=== PATIENT | male | born 1985 | race Caucasian/White ===

== ENCOUNTER 2018-02-05 05:51 | Emergency (ER) | payer OTHER ==
[2018-02-05 06:08] VITALS: BP 126/74; PULSE 74; RESP 20; TEMP 98.3
--- NOTE | 2018-02-05 06:43 | XR ---
EXAMINATION TYPE: XR hand complete RT DATE OF EXAM: 02/05/2018 COMPARISON: NONE HISTORY: Laceration and pain TECHNIQUE: 3 views FINDINGS: I see no fracture nor dislocation. Joint spaces are fairly normal. There are no erosions. T here is no sign of radiopaque foreign body. IMPRESSION: Negative right hand exam.
[2018-02-05] MEDS ORDERED: LIDOCAINE 1% INJ 10MG/ML (20 ML MDV) SQ ONE (07:12)
--- NOTE | 2018-02-05 07:17 | ED ---
General Adult HPI - General Chief complaint: Wound/Laceration Stated complaint: Finger injury-[facility] Source: patient Mode of arrival: ambulatory Limitations: no limitations - History of Present Illness Initial comments: Dictation was produced using [employer] dictation software. please excuse any grammatical, word or spelling errors. Chief Complaint: 32-year-old male with no significant past medical history presents with finger laceration. History of Present Illness: 32-year-old male who was working at the local [employer] when his right fourth digit was pinched between a metal object. He noticed that there was bleeding and evisceration some of the subcutaneous tissues. He went to see his bosses possible to come to the emergency department for evaluation. Patient states his finger was caught between the ground and a metal object. Patient states that only his right fourth digit was involved in the incident. Denies any injury to other digits and hand. This state there is some pain to his wrist and forearm when he makes a fist. Last tetanus was a couple years ago. The ROS documented in this emergency department record has been reviewed and confirmed by me. Those systems with pertinent positive or negative responses have been documented in the HPI. All other systems are other negative and/or noncontributory. - Related Data Home Medications Medication Instructions Recorded Confirmed No Known Home Medications 02/05/18 02/05/18 Allergies Allergy/AdvReac Type Severity Reaction Status Date / Time No Known Allergies Allergy Verified 02/05/18 06:08 Review of Systems ROS Statement: Those systems with pertinent positive or pertinent negative responses have been documented in the HPI. ROS Other: All systems not noted in ROS Statement are negative. Past Medical History Past Medical History: No Reported History History of Any Multi-Drug Resistant Organisms: None Reported Past Surgical History: Hernia Repair Past Psychological History: ADD/ADHD Smoking Status: Current every day smoker Past Alcohol Use History: None Reported Past Drug Use History: None Reported General Exam - General Exam Comments Initial Comments: PHYSICAL EXAM: General Impression: Alert and oriented x3, not in acute distress HEENT: Normocephalic atraumatic, extra-ocular movements intact, pupils equal and reactive to light bilaterally, mucous membranes moist. Cardiovascular: Heart regular rate and rhythm, S1&S2 audible, no murmurs, rubs or gallops Chest: Lungs clear to auscultation bilaterally, no rhonchi, no wheeze, no rales Abdomen: Bowel sounds present, abdomen soft, non-tender, non-distended, no organomegaly Musculoskeletal: Pulses present and equal in all extremities, no peripheral edema Motor: Power 5/5 bilaterally, no focal deficits noted Neurological: CN II-XII grossly intact, no focal motor or sensory deficits noted Skin: Intact with no visualized rashes, 4 mm laceration to the right fourth digit Psych: Normal affect and mood Limitations: no limitations Course Vital Signs 02/05/18 06:05 Temperature 98.3 F Pulse Rate 74 Respiratory 20 Rate Blood Pressure 126/74 O2 Sat by Pulse 99 Oximetry Procedures - Laceration Laceration #1 Consent Obtained: verbal consent Time Out Performed: Yes Indication: laceration Site: hand Size (cm): 4 (mm) Description: linear Depth: simple, single layer Sedation/Analgesia: none Anesthetic Used: lidocaine 1% Anesthesia Technique: nerve block Amount (mls): 3 Pre-repair: irrigated extensively Type of Sutures: nylon Size of Sutures: 3-0 Number of Sutures: 2 Technique: simple, interrupted Patient Tolerated Procedure: well Medical Decision Making - Medical Decision Making ED course: 32-year-old male presents with finger laceration. Patient suffered mild crush injury to the right fourth digit. vital signs upon arrival are within acceptable limits. Patient's tetanus is up-to-date. No suspicion of significant injury to the rest of the right upper extremity or rest of the body. Patient has no complaints. Laceration was repaired at bedside. Digital block was used to anesthetize the finger. See laceration repair note for more details. Patient tolerated procedure well. Patient told that his sutures will need to be removed in approximately 10 days. He is advised to come back to the emergency department or follow-up with his primary care physician for follow-up for suture removal. Patient told to return to the emergency department should he develop any signs of infection including erythema, worsening pain or drainage from the wound site. No clear indication for antibiotic administration at this time. Patient is understandable and agreeable to disposition. Disposition Clinical Impression: Laceration Disposition: HOME SELF-CARE Condition: Good Instructions: Laceration (ED) Additional Instructions: suture removal in 10-14 days Is patient prescribed a controlled substance at d/c from ED?: No Referrals: Nonstaff,Physician [Primary Care Provider] - 1-2 days Time of Disposition: 07:41
== END 2018-02-05 07:59 | disposition home or self-care (01) ==
LOC: EC 05:51
DX: S61.214A Laceration without foreign body of right ring finger without damage to nail, initial encounter (principal); F17.200 Nicotine dependence, unspecified, uncomplicated; W23.0XXA Caught, crushed, jammed, or pinched between moving objects, initial encounter; Y92.89 Other specified places as the place of occurrence of the external cause
CPT/HCPCS: 73130; 99283; 12002; J2001